=== PATIENT | male | born 1960 | race Caucasian/White ===

== ENCOUNTER 2017-10-23 11:15 | Emergency (ER) | payer BC, OTHER ==
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
[2017-10-23] MEDS ORDERED: HYDROmorphone 1 MG/ML Syringe IVPUSH ONE (11:27)
[2017-10-23] MEDS ORDERED: methylPREDNISolone Sodium Succinate 125 MG/2 ML SDV IVPUSH ONE (11:27)
== END 2017-10-23 12:25 | disposition home or self-care (01) ==
LOC: KA.ED 11:15
DX: M25.822 Other specified joint disorders, left elbow (principal); Z87.891 Personal history of nicotine dependence
CPT/HCPCS: 96374; 96375; 99283; J1170; J2930; J3360